=== PATIENT | female | born 1990 | race Caucasian/White ===

== ENCOUNTER 2021-06-23 12:57 | Emergency (ER) | payer MEDICAID ==
[~2021-06-23] VITALS: Ht 167.6 cm; Wt 65.8 kg
[2021-06-23 13:39] VITALS: BP 120/70
--- NOTE | 2021-06-23 14:02 | NUR ---
DR TREVINO AT BEDSIDE FOR EVAL
[2021-06-23] MEDS ORDERED: IBUPROFEN 600 MG TABLET ONE (14:16)
[2021-06-23] MEDS ORDERED: HYDROCODONE/APAP 5/325MG TABLET ONE (14:16)
[2021-06-23] MEDS ORDERED: HYDROCODONE/APAP 5/325MG TABLET PO ONE (14:30)
[2021-06-23] MEDS ORDERED: IBUPROFEN 600 MG TABLET PO ONE (14:30)
--- NOTE | 2021-06-23 14:52 | NUR ---
BACK FROM CT
[2021-06-23] MEDS ORDERED: IBUP-1957 PO (15:04)
--- NOTE | 2021-06-23 15:33 | NUR ---
Patient discharged to home in stable condition. Written and verbal after care instructions given. Patient verbalizes understanding of instruction.
== END 2021-06-23 15:34 | disposition home or self-care (01) ==
LOC: ER 13:02
DX: S30.0XXA Contusion of lower back and pelvis, initial encounter (principal); S09.8XXA Other specified injuries of head, initial encounter; W10.8XXA Fall (on) (from) other stairs and steps, initial encounter; Y93.89 Activity, other specified; Y92.89 Other specified places as the place of occurrence of the external cause; Y99.8 Other external cause status
CPT/HCPCS: 70450-TC; 72131-TC